=== PATIENT | female | born 1965 | race African-American/Black ===

== ENCOUNTER 2020-09-10 05:30 | Emergency (ER) | payer MEDICAID ==
[~2020-09-10] VITALS: Ht 172.7 cm; Wt 56.7 kg
--- NOTE | 2020-09-10 05:31 | NUR ---
BIB[facility]S C/O BILATERAL HAND PAIN SWELLING WITH MULTIPLE WOUNDS NOTED ON ALL DIGITS X1 MONTH. CHRONIC BILATERAL LOWER EXTREMITY SWELLING, PT AAOX4, DENIES ANY SOB/CP, VSS, PENDING ER PROVIDER BRIDGETTAL
[2020-09-10 05:59] LABS: BASOPHILS % (AUTO) 0.2 % (0.0-2.0); EOSINOPHILS % (AUTO) 0.9 % (0.0-6.0); HEMATOCRIT 31 % (33-45); HEMOGLOBIN 9.9 g/dL (11.5-14.8); LYMPHOCYTES % (AUTO) 17.4 % (20.0-44.0); MEAN CORPUSCULAR HGB CONC 33 g/dl (31.0-36.0); MEAN CORPUSCULAR VOLUME 92 fL (82-100); MONOCYTES # (AUTO) 0.7 /CMM (0.1-1.30); MONOCYTES % (AUTO) 12.3 % (2.0-12.0); NEUTROPHILS # (AUTO) 3.9 /CMM (1.8-8.9); NEUTROPHILS % (AUTO) 69.2 % (43.0-81.0); PLATELET COUNT (AUTO) 334 /CMM (150-450); RED BLOOD CELL COUNT(AUTO) 3.31 MIL/uL (4.0-5.2); WHITE BLOOD COUNT (AUTO) 5.7 K/uL (4.3-11.0)
[2020-09-10 06:07] LABS: CREATININE 0.7 mg/dL (0.6-1.3); POTASSIUM 3.2 mmol/L (3.5-5.1)
[2020-09-10 06:13] LABS: ALBUMIN 2.5 g/dL (3.4-5.0); BILIRUBIN,DIRECT 0.1 mg/dL (0.0-0.2); BILIRUBIN,TOTAL 0.2 mg/dL (0.2-1.0); TOTAL PROTEIN, SERUM 7.8 g/dL (6.4-8.2)
[2020-09-10] MEDS ORDERED: PIPERACILLIN /TAZOBACTAM 3.375 G in IV D5W 50 ML IV ONE (06:30)
[2020-09-10] MEDS ORDERED: VANCOMYCIN 1 GM in IV D5W 250 ML IV ONE (06:30)
[2020-09-10] MEDS ORDERED: PIPERACILLIN /TAZOBACTAM 3.375 G VIAL IV ONE (06:44)
[2020-09-10] MEDS ORDERED: VANCOMYCIN 1 GM VIAL ONE (06:44)
[2020-09-10] MEDS ORDERED: POTASSIUM CHLORIDE 20 MEQ TAB.PRT.SR PO ONE ×2 (06:48→07:00)
--- NOTE | 2020-09-10 07:36 | NUR ---
[place] [facility] [phone] SPEAKING WITH CONY FAX [phone]
--- NOTE | 2020-09-10 08:00 | NUR ---
Dressing on both hands done.
--- NOTE | 2020-09-10 08:12 | NUR ---
COVID NEGATIVE PER LAB
--- NOTE | 2020-09-10 08:13 | NUR ---
CALLED [facility] WILL CALL US BACK TO GET INFO. [phone]
--- NOTE | 2020-09-10 08:41 | NUR ---
EUNICE ROWLEY FROM [facility] CALLED WANTING TO SPEAK WITH [employer] [phone]
--- NOTE | 2020-09-10 08:44 | NUR ---
CALLED [facility] [phone] NO HAND SPECIALIST
--- NOTE | 2020-09-10 08:52 | NUR ---
CALLED [facility] [phone] NO HAND SPECIALIST
--- NOTE | 2020-09-10 08:54 | NUR ---
CALLED [facility] [phone] [facility] [phone] SHAHANA AT [facility]
--- NOTE | 2020-09-10 08:58 | NUR ---
[facility] CALLED INFORMING US THAT THEY ARE AT MAX CAP. CLOSING THE CASE. DR YIN AWARE.
--- NOTE | 2020-09-10 09:00 | NUR ---
THE PATIENT IS PROVIDED WITH BREAKFAST. ATE 100% OF FOOD.
--- NOTE | 2020-09-10 09:53 | NUR ---
The patient is alert and oriented x3. Denies SI/HI. Patient does not wish to proceed with medical care recommended by Dr. Sethi. Patient given information related to possible complications, up to and including , which could occur as a result of leaving the hospital at this time. Patient verbalizes understanding of risks involved due to leaving against medical advice. Patient has signed AMA form.
[2020-09-10 10:10] VITALS: BP 137/72
== END 2020-09-10 09:53 | disposition left against medical advice (07) ==
LOC: ER 05:32
DX: M86.142 Other acute osteomyelitis, left hand (principal); L03.114 Cellulitis of left upper limb; L03.113 Cellulitis of right upper limb; M65.9 Synovitis and tenosynovitis, unspecified; Z59.0 Homelessness; F20.9 Schizophrenia, unspecified; F19.10 Other psychoactive substance abuse, uncomplicated; D64.9 Anemia, unspecified; E87.6 Hypokalemia
CPT/HCPCS: 36415; 73130 ×2; 80048; 80076; 83605; 85025; 87040 ×2; 87081; 87426; 96365; 96368; 99284; A6403; C9803; J2543; J3370; J7060